=== PATIENT | female | born 1985 | race African-American/Black ===

== ENCOUNTER 2017-03-20 13:00 | Inpatient (IN) | payer OTHER ==
[2017-03-20 13:57] VITALS: BMI 26.7
--- NOTE | 2017-03-20 15:40 | HP ---
CIWA Score - CIWA Score Nausea/Vomitin Muscle Tremors: 4-Moderate,w/Arms Extend Anxiety: 4-Mod. Anxious/Guarded Agitation: 4-Moderately Restless Paroxysmal Sweats: 3 Orientation: 0-Oriented Tacttile Disturbances: 1-Very Mild Itch/Numbness Auditory Disturbances: 0-None Visual Disturbances: 0-None Headache: 1-Very Mild CIWA-Ar Total Score: 20 Admission ROS S - HPI Chief Complaint: alcohol withdrawal sx Allergies/Adverse Reactions: Allergies Allergy/AdvReac Type Severity Reaction Status Date / Time sulfamethoxazole Allergy Severe Hives Verified 03/20/17 14:20 [From Bactrim] trimethoprim [From Bactrim] Allergy Severe Hives Verified 03/20/17 14:20 History of Present Illness: 31 yo f w h /o chronic alcoholism drinks 1.5 cases beer daily PMHx alcohol withdrawal seizures in past, bipolar do, h/o suicde attempts in past, s/p gastric bypass surgery 2005. h/o DTs, no intubation. Exam Limitations: No Limitations - Ebola screening Have you traveled outside of the country in the last 21 days: No Have you had contact with anyone from an Ebola affected area: No Have you been sick,other than usual withdrawal symptoms: No Do you have a fever: No - Review of Systems Constitutional: Diaphoresis, Malaise, Weakness, Weight Stable EENT: reports: No Symptoms Reported Respiratory: reports: No Symptoms reported Cardiac: reports: No Symptoms Reported GI: reports: Constipated, Diarrhea, Nausea, Poor Appetite, Poor Fluid Intake, Indigestion, Abdominal cramping : reports: No Symptoms Reported Musculoskeletal: reports: No Symptoms Reported Integumentary: reports: Flushing, Sweating Neuro: reports: Headache, Numbness, Paresthesia, Seizure (2008), Tingling, Tremors, Weakness Endocrine: reports: No Symptoms Reported Hematology: reports: Anemia (s/p gastric bypass surgery) Psychiatric: reports: Judgement Intact, Mood/Affect Appropiate, Orientated x3, Anxious, Depressed Other Systems: Reviewed and Negative Patient History - Patient Medical History Hx Anemia: Yes (s/p gastric by pass surgery) Hx Asthma: No Hx Chronic Obstructive Pulmonary Disease (COPD): No Hx Cardiac Disorders: No Hx Hypertension: Yes Hx Hypercholesterolemia: No Hx Pacemaker: No HX Cerebrovascular Accident: No Hx Seizures: Yes (alcohol related once in 2007) Hx Diabetes: No Hx Gastrointestinal Disorders: No Hx Liver Disease: No Hx Genitourinary Disorders: No Hx Sexually Transmitted Disorders: No Hx Renal Disease (ESRD): No Hx Thyroid Disease: No Hx Human Immunodeficiency Virus (HIV): No Hx Hepatitis C: No Hx Depression: Yes Hx Suicide Attempt: Yes (drank bleach at age 25) Hx Bipolar Disorder: Yes (TYPE II AND ANXIETY DISODER) Hx Schizophrenia: No - Patient Surgical History Past Surgical History: Yes Hx Neurologic Surgery: No Hx Cataract Extraction: No Hx Cardiac Surgery: No Hx Lung Surgery: No Hx Breast Surgery: No Hx Breast Biopsy: No Hx Abdominal Surgery: Yes (GASTRIC BYPASS IN 2005) Hx Appendectomy: No Hx Cholecystectomy: No Hx Genitourinary Surgery: No Hx Section: No Hx Orthopedic Surgery: No Hx Hysterectomy: No Anesthesia Reaction: No - PPD History Previous Implant?: Yes Documented Results: Negative w/proof Implanted On Prior [facility] Admission?: Yes Date: 03/22/15 Results: 0 mm PPD to be Administered?: Yes - Reproductive History Patient is a Female of Child Bearing Age (11 -55 yrs old): No Last Menstrual Period: 01/30/15 Patient : No - Smoking Cessation Smoking history: Current every day smoker Have you smoked in the past 12 months: Yes Aproximately how many cigarettes per day: 10 Hx Chewing Tobacco Use: No Initiated information on smoking cessation: Yes 'Breaking Loose' booklet given: 03/20/17 - Substance & Tx. History Hx Alcohol Use: Yes Hx Substance Use: No Substance Use Type: Alcohol Hx Substance Use Treatment: Yes ( [facility] 2 years ago) - Substances Abused Alcohol-beer Route: Oral Frequency: Daily Amount used: 1 case (12 oz.) Age of first use: 23 Date of Last Use: 03/20/17 Family Disease History - Family Disease History Family Disease History: Diabetes: Mother, Other: Brother (ETOH DEPENDENT), Sister (ETOH DEPENDENT) Admission Physical Exam BHS - Vital Signs Vital Signs: Vital Signs - 24 hr 03/20/17 13:44 Temperature 97.3 F L Pulse Rate 113 H Respiratory 20 Rate Blood Pressure 117/75 - Physical General Appearance: Yes: Nourished, Appropriately Dressed, Disheveled, Mild Distress, Irritable, Sweating, Anxious HEENTM: Yes: Within Normal Limits, EOMI, Hearing grossly Normal, Normal ENT Inspection, Normocephalic, Normal Voice, TAJ, Pharynx Normal Respiratory: Yes: Within Normal Limits, Chest Non-Tender, Lungs Clear, Normal Breath Sounds, No Respiratory Distress, No Accessory Muscle Use Neck: Yes: Within Normal Limits, No masses,lesions,Nodules, Supple, Trachea in good position Breast: Yes: Breast Exam Deferred Cardiology: Yes: Within Normal Limits, Regular Rhythm, Regular Rate, S1, S2 Abdominal: Yes: Normal Bowel Sounds, Non Tender, Soft, Distended Genitourinary: Yes: Within Normal Limits Back: Yes: Within Normal Limits, CVA Tenderness (L) Musculoskeletal: Yes: full range of Motion, Gait Steady, Pelvis Stable Extremities: Yes: Normal Capillary Refill, Normal Inspection, Normal Range of Motion, Non-Tender, Tremors Neurological: Yes: regional property manager II-XII NML intact, Fully Oriented, Alert, Motor Strength 5/5, Normal Mood/Affect Integumentary: Yes: Normal Color, Warm, Diaphoresis, Moist Lymphatic: Yes: Within Normal Limits - Addiitonal Findings: alcohol withdrawal sx - Diagnostic (1) Alcohol dependence with uncomplicated withdrawal Current Visit: Yes Status: Acute (2) Anxiety disorder Current Visit: No Status: Chronic (3) Bipolar disorder Current Visit: Yes Status: Chronic (4) Nicotine dependence Current Visit: No Status: Chronic Qualifiers: Nicotine product type: cigarettes (5) Anemia Current Visit: Yes Status: Chronic Qualifiers: Anemia type: unspecified type Qualified Code(s): D64.9 - Anemia, unspecified (6) H/O gastric bypass Current Visit: Yes Status: Acute Cleared for Admission [facility] - Detox or Rehab Claeared for Rehab Admission: Yes [facility] Breath Alcohol Content Breath Alcohol Content: 0.238 Urine Pregancy Test - Result Urine Test Results: Negative- NO Line Present Urine Drug Screen - Results Drug Screen Negative: Yes
[2017-03-20] MEDS ORDERED: MENTHOL/PHENOL 1 EACH UD MM PRN (15:43)
[2017-03-20] MEDS ORDERED: chlordiazePOXIDE HCL 25 MG CAPSULE PO PRN (15:43)
[2017-03-20] MEDS ORDERED: ACETAMINOPHEN 325 MG TABLET (FP) PO PRN (15:43)
[2017-03-20] MEDS ORDERED: P-EPHED 60MG/TRIPROLIDI 2.5MG TABLET PO PRN (15:43)
[2017-03-20] MEDS ORDERED: guaiFENesin/D-METHORPHAN HB 10 ML UNIT-DOSE CUPS PO PRN (15:43)
[2017-03-20] MEDS ORDERED: MAG HYDROX/AL HYDROX/SIMETH 30 ML UNIT-DOSE CUP PO PRN (15:43)
[2017-03-20] MEDS ORDERED: LOPERAMIDE HCL 2 MG CAPSULE PO PRN (15:43)
[2017-03-20] MEDS ORDERED: MAGNESIUM HYDROX 2400MG/30ML ORAL SUSPENSION 30 ML CUP PO PRN (15:43)
[2017-03-20] MEDS ORDERED: MAGNESIUM CITRATE 300 ML BOTTLE PO PRN (15:43)
[2017-03-20] MEDS ORDERED: diphenhydrAMINE HCL 50 MG CAPSULE PO PRN (15:43)
[2017-03-20] MEDS ORDERED: NICOTINE POLACRILEX 2 MG GUM BUC PRN (15:45)
[2017-03-20] MEDS: chlordiazePOXIDE HCL 25 MG CAPSULE PO SCH ×2 (17:55→22:13)
[2017-03-20] MEDS: FERROUS SO4 325 MG TABLET (FP) PO SCH (18:12)
[2017-03-20] MEDS: NICOTINE 14 MG/24 HOURS TOPICAL PATCH TD SCH (18:18)
[2017-03-20] MEDS: THIAMINE HCL 100 MG TABLET (FP) PO SCH (22:12)
[2017-03-20] MEDS: QUEtiapine FUMARATE 50 MG TABLET PO SCH (22:13)
[2017-03-20] MEDS: DOCUSATE SODIUM 100 MG CAPSULE (FP) PO SCH (22:33)
[2017-03-21 00:38] LABS: URINE APPEARANCE CLEAR; URINE BILIRUBIN NEGATIVE (NEGATIVE); URINE BLOOD NEGATIVE (NEGATIVE); URINE COLOR LTYELLOW; URINE GLUCOSE (UA) NEGATIVE (NEGATIVE); URINE KETONE NEGATIVE (NEGATIVE); URINE LEUK ESTERASE NEGATIVE (NEGATIVE); URINE NITRITE NEGATIVE (NEGATIVE); URINE PROTEIN NEGATIVE (NEGATIVE); URINE UROBILINOGEN NEGATIVE mg/dL (0.2-1.0)
[2017-03-21] MEDS: chlordiazePOXIDE HCL 25 MG CAPSULE PO SCH ×4 (05:36→22:23)
[2017-03-21] MEDS: FERROUS SO4 325 MG TABLET (FP) PO SCH ×3 (07:25→17:38)
[2017-03-21 09:52] LABS: MCH 32.2 pg (25.7-33.7); MCHC 33.8 g/dl (32.0-36.0); MEAN CELL VOLUME 95.2 fl (80-96); PLATELET COUNT 271 K/MM3 (134-434); WHITE BLOOD COUNT 9.5 K/mm3 (4.0-10.0)
--- NOTE | 2017-03-21 10:06 | PN ---
S CIWA - CIWA Score Nausea/Vomitin Muscle Tremors: 4-Moderate,w/Arms Extend Anxiety: 4-Mod. Anxious/Guarded Agitation: 4-Moderately Restless Paroxysmal Sweats: 3 Orientation: 0-Oriented Tacttile Disturbances: 1-Very Mild Itch/Numbness Auditory Disturbances: 0-None Visual Disturbances: 0-None Headache: 1-Very Mild CIWA-Ar Total Score: 20 BHS Progress Note (SOAP) Subjective: nausea, sweats, interrupted sleep, anxiety, tremors Objective: 03/21/17 10:05 Vital Signs - 24 hr 03/20/17 03/20/17 03/20/17 13:44 18:56 21:58 Temperature 97.3 F L 98.4 F 98.4 F Pulse Rate 113 H 96 H 103 H Respiratory 20 18 18 Rate Blood Pressure 117/75 134/95 138/80 03/21/17 03/21/17 03/21/17 00:26 00:30 03:30 Temperature Pulse Rate 98 H 82 Respiratory 18 18 Rate Blood Pressure 03/21/17 03/21/17 03/21/17 06:00 06:30 09:32 Temperature 97.7 F 98.1 F Pulse Rate 81 81 97 H Respiratory 18 18 18 Rate Blood Pressure 133/86 146/86 Laboratory Tests 03/20/17 03/21/17 21:31 06:00 WBC 9.5 D RBC 3.90 Hgb 12.5 Hct 37.1 MCV 95.2 MCH 32.2 MCHC 33.8 RDW 14.0 D Plt Count 271 D MPV 9.0 D Urine Color Ltyellow Urine Appearance Clear Urine pH 5.0 Ur Specific [place] 1.010 Urine Protein Negative Urine Glucose (UA) Negative Urine Ketones Negative Urine Blood Negative Urine Nitrite Negative Urine Bilirubin Negative Urine Urobilinogen Negative labs pending Assessment: 03/21/17 10:05 withdrawal sx Plan: cont detox, fluids, encourage ambualtion
[2017-03-21] MEDS: PRENATAL VITAMINS W/ FOLIC ACID TABLET (FP) PO SCH (10:13)
[2017-03-21] MEDS: NICOTINE 14 MG/24 HOURS TOPICAL PATCH TD SCH (10:13)
[2017-03-21 10:19] LABS: ALBUMIN 3.9 g/dl (3.4-5.0); ALK PHOS 74 U/L (45-117); ANION GAP 7 (8-16); BILIRUBIN,TOTAL 0.7 mg/dL (0.2-1.0); CALCIUM 8.7 mg/dL (8.5-10.1); CO2 26 mmol/L (21-32); CREATININE 0.7 mg/dL (0.55-1.02); GLUCOSE,RANDOM 114 mg/dL (74-106); SGOT/AST 35 U/L (15-37); SGPT/ALT 47 U/L (12-78); TOT PROT 7.7 g/dl (6.4-8.2)
--- NOTE | 2017-03-21 11:03 | CONSULT ---
[facility] Psychiatric Consult - Data Date of interview: 03/21/17 Admission source: [facility] Identifying data: This is a 31 year old single AA female mother of 4,unemployed and on public assistance, residing in [place]. Substance Abuse History: PAtient reports started drinking at age of 23, she drinks daily 1 case(12oz). She smokes 10 cigarettes a day. Medical History: History of gastric bypass surgery. Psychiatric History: Patient reports was diagnosed with Bipolar II and Anxiety disorder,reports several psychiatric hospitalizations,with most recent in 2014 at [facility], states she is on LAmictal 200 mg po bid and Seroquel 50 mg po hs, due to her relapse to drinking she has not been taking medications for more than 2 weeks, but thinks she needs to restart her medications now. Physical/Sexual Abuse/Trauma History: Denies Mental Status Exam - Mental Status Exam Alert and Oriented to: Place, Person Cognitive Function: Grossly Intact Patient Appearance: Unkempt Mood: Anxious Affect: Appropriate, Mood Congruent Patient Behavior: Appropriate, Cooperative Speech Pattern: Clear, Appropriate Voice Loudness: Normal Thought Process: Intact, Goal Oriented Thought Disorder: Not Present Hallucinations: Denies Suicidal Ideation: Denies Homicidal Ideation: Denies Insight/Judgement: Fair Sleep: Fair Appetite: Fair Muscle strength/Tone: Normal Gait/Station: Normal Psychiatric Findings - Problem List ([place] 1, 2,3) (1) Alcohol dependence with uncomplicated withdrawal Current Visit: Yes Status: Acute (2) Anxiety disorder Current Visit: No Status: Chronic (3) Nicotine dependence Current Visit: No Status: Chronic Qualifiers: Nicotine product type: cigarettes (4) Bipolar II disorder Current Visit: Yes Status: Acute - Initial Treatment Plan Initial Treatment Plan: Patient was recommende to restart medication with low dosage since 2 weeks she was without meds, patient agreed with careplan. Will start with LAmictal 100 mg po bid and Seroquel 50 mg po hs,continue detox. protocol.
[2017-03-21 15:07] LABS: HIV 1 & 2 AB NEGATIVE; HIV 1 AGp24 NEGATIVE
[2017-03-21] MEDS: THIAMINE HCL 100 MG TABLET (FP) PO SCH (22:22)
[2017-03-21] MEDS: DOCUSATE SODIUM 100 MG CAPSULE (FP) PO SCH (22:22)
[2017-03-21] MEDS: QUEtiapine FUMARATE 50 MG TABLET PO SCH (22:22)
[2017-03-21] MEDS: lamoTRIgine 100 MG TABLET (FP) PO SCH (22:23)
[2017-03-22] MEDS: chlordiazePOXIDE HCL 25 MG CAPSULE PO SCH ×2 (05:42→10:29)
[2017-03-22] MEDS: IBUPROFEN 400 MG TABLET (FP) PO PRN (05:44)
[2017-03-22] MEDS: FERROUS SO4 325 MG TABLET (FP) PO SCH ×3 (07:52→17:26)
[2017-03-22] MEDS: PRENATAL VITAMINS W/ FOLIC ACID TABLET (FP) PO SCH (10:29)
[2017-03-22] MEDS: NICOTINE 14 MG/24 HOURS TOPICAL PATCH TD SCH (10:30)
[2017-03-22] MEDS: lamoTRIgine 100 MG TABLET (FP) PO SCH ×2 (10:30→22:08)
--- NOTE | 2017-03-22 11:12 | PN ---
S CIWA - CIWA Score Nausea/Vomitin Muscle Tremors: 3 Anxiety: 3 Agitation: 2 Paroxysmal Sweats: 3 Orientation: 0-Oriented Tacttile Disturbances: 1-Very Mild Itch/Numbness Auditory Disturbances: 1-Very Mild Visual Disturbances: 1-Very Mild Sensitivity Headache: 2-Mild CIWA-Ar Total Score: 19 S Progress Note (SOAP) Subjective: Sweats, tremors, headache and sleep interruption Objective: 03/22/17 11:11 Vital Signs - 8 hr 03/22/17 03/22/17 03/22/17 03:30 06:30 10:49 Temperature 97.3 F L 97.7 F Pulse Rate 74 76 Respiratory 18 18 16 Rate Blood Pressure 131/86 129/91 Laboratory Last Values WBC 9.5 K/mm3 (4.0-10.0) D 03/21/17 06:00 RBC 3.90 M/mm3 (3.60-5.2) 03/21/17 06:00 Hgb 12.5 GM/dL (10.7-15.3) 03/21/17 06:00 Hct 37.1 % (32.4-45.2) 03/21/17 06:00 MCV 95.2 fl (80-96) 03/21/17 06:00 MCH 32.2 pg (25.7-33.7) 03/21/17 06:00 MCHC 33.8 g/dl (32.0-36.0) 03/21/17 06:00 RDW 14.0 % (11.6-15.6) D 03/21/17 06:00 Plt Count 271 K/MM3 (134-434) D 03/21/17 06:00 MPV 9.0 fl (7.5-11.1) D 03/21/17 06:00 Sodium 137 mmol/L (136-145) 03/21/17 06:00 Potassium 4.3 mmol/L (3.5-5.1) 03/21/17 06:00 Chloride 104 mmol/L (98-107) 03/21/17 06:00 Carbon Dioxide 26 mmol/L (21-32) 03/21/17 06:00 Anion Gap 7 (8-16) L 03/21/17 06:00 BUN 8 mg/dL (7-18) D 03/21/17 06:00 Creatinine 0.7 mg/dL (0.55-1.02) 03/21/17 06:00 Creat Clearance w eGFR > 60 (>60) 03/21/17 06:00 Random Glucose 114 mg/dL (74-106) H D 03/21/17 06:00 Calcium 8.7 mg/dL (8.5-10.1) 03/21/17 06:00 Total Bilirubin 0.7 mg/dL (0.2-1.0) D 03/21/17 06:00 AST 35 U/L (15-37) D 03/21/17 06:00 ALT 47 U/L (12-78) D 03/21/17 06:00 Alkaline Phosphatase 74 U/L (45-117) D 03/21/17 06:00 Total Protein 7.7 g/dl (6.4-8.2) D 03/21/17 06:00 Albumin 3.9 g/dl (3.4-5.0) D 03/21/17 06:00 Urine Color Ltyellow 03/20/17 21:31 Urine Appearance Clear 03/20/17 21:31 Urine pH 5.0 (5.0-8.0) 03/20/17 21:31 Ur Specific [place] 1.010 (1.005-1.025) 03/20/17 21:31 Urine Protein Negative (NEGATIVE) 03/20/17 21:31 Urine Glucose (UA) Negative (NEGATIVE) 03/20/17 21:31 Urine Ketones Negative (NEGATIVE) 03/20/17 21:31 Urine Blood Negative (NEGATIVE) 03/20/17 21:31 Urine Nitrite Negative (NEGATIVE) 03/20/17 21:31 Urine Bilirubin Negative (NEGATIVE) 03/20/17 21:31 Urine Urobilinogen Negative mg/dL (0.2-1.0) 03/20/17 21:31 RPR Titer Nonreactive (NONREACTIVE) 03/21/17 06:00 HIV 1&2 Antibody Screen Negative 03/21/17 08:30 HIV P24 Antigen Negative 03/21/17 08:30 Labs noted Assessment: 03/22/17 11:11 withdrawal sx Plan: continue detox
[2017-03-22] MEDS: chlordiazePOXIDE 5 MG CAPSULE PO SCH ×2 (17:26→22:08)
[2017-03-22] MEDS: THIAMINE HCL 100 MG TABLET (FP) PO SCH (22:08)
[2017-03-22] MEDS: QUEtiapine FUMARATE 50 MG TABLET PO SCH (22:08)
[2017-03-22] MEDS: DOCUSATE SODIUM 100 MG CAPSULE (FP) PO SCH (22:08)
[2017-03-23] MEDS: IBUPROFEN 400 MG TABLET (FP) PO PRN ×2 (01:50→12:16)
[2017-03-23] MEDS: chlordiazePOXIDE 5 MG CAPSULE PO SCH ×2 (05:13→10:12)
[2017-03-23] MEDS: FERROUS SO4 325 MG TABLET (FP) PO SCH ×3 (07:30→17:21)
[2017-03-23] MEDS: lamoTRIgine 100 MG TABLET (FP) PO SCH ×2 (10:12→22:25)
[2017-03-23] MEDS: PRENATAL VITAMINS W/ FOLIC ACID TABLET (FP) PO SCH (10:12)
[2017-03-23] MEDS: NICOTINE 14 MG/24 HOURS TOPICAL PATCH TD SCH (10:12)
--- NOTE | 2017-03-23 14:49 | PN ---
BHS Progress Note (SOAP) Subjective: Sweating,interrupted sleep,restless Objective: 03/23/17 14:47 Vital Signs - 8 hr 03/23/17 03/23/17 10:15 13:34 Temperature 95.7 F L 97.5 F L Pulse Rate 78 75 Respiratory 18 20 Rate Blood Pressure 138/87 130/85 Laboratory Tests 03/20/17 03/21/17 03/21/17 21:31 06:00 06:00 WBC 9.5 D RBC 3.90 Hgb 12.5 Hct 37.1 MCV 95.2 MCH 32.2 MCHC 33.8 RDW 14.0 D Plt Count 271 D MPV 9.0 D Sodium 137 Potassium 4.3 Chloride 104 Carbon Dioxide 26 Anion Gap 7 L BUN 8 D Creatinine 0.7 Creat Clearance w eGFR > 60 Random Glucose 114 H D Calcium 8.7 Total Bilirubin 0.7 D AST 35 D ALT 47 D Alkaline Phosphatase 74 D Total Protein 7.7 D Albumin 3.9 D Urine Color Ltyellow Urine Appearance Clear Urine pH 5.0 Ur Specific [place] 1.010 Urine Protein Negative Urine Glucose (UA) Negative Urine Ketones Negative Urine Blood Negative Urine Nitrite Negative Urine Bilirubin Negative Urine Urobilinogen Negative RPR Titer HIV 1&2 Antibody Screen HIV P24 Antigen 03/21/17 03/21/17 06:00 08:30 WBC RBC Hgb Hct MCV MCH MCHC RDW Plt Count MPV Sodium Potassium Chloride Carbon Dioxide Anion Gap BUN Creatinine Creat Clearance w eGFR Random Glucose Calcium Total Bilirubin AST ALT Alkaline Phosphatase Total Protein Albumin Urine Color Urine Appearance Urine pH Ur Specific [place] Urine Protein Urine Glucose (UA) Urine Ketones Urine Blood Urine Nitrite Urine Bilirubin Urine Urobilinogen RPR Titer Nonreactive HIV 1&2 Antibody Screen Negative HIV P24 Antigen Negative labs noted Assessment: 03/23/17 14:47 Withdrawal sx. Plan: Continue detox
[2017-03-23] MEDS: chlordiazePOXIDE HCL 10 MG CAPSULE PO SCH ×2 (17:19→22:25)
[2017-03-23] MEDS: DOCUSATE SODIUM 100 MG CAPSULE (FP) PO SCH (22:25)
[2017-03-23] MEDS: QUEtiapine FUMARATE 50 MG TABLET PO SCH (22:25)
[2017-03-23] MEDS: THIAMINE HCL 100 MG TABLET (FP) PO SCH (22:25)
[2017-03-24] MEDS: chlordiazePOXIDE HCL 10 MG CAPSULE PO SCH (05:15)
[2017-03-24 06:11] VITALS: BP 109/70; PULSE 64; TEMP 98.6
[2017-03-24] MEDS: FERROUS SO4 325 MG TABLET (FP) PO SCH (07:10)
--- NOTE | 2017-03-24 08:28 | DS ---
[facility] Detox Discharge Summary Admission Date: 03/20/17 Discharge Date: 03/24/17 - History Present History: Alcohol Dependence Additional Comments: follow up with after care program as arrangement Pertinent Past History: anemia history of gastric by pass surgery bipolar disorder hypertension - Physical Exam Results Vital Signs: Vital Signs Temperature 98.6 F 03/24/17 06:10 Pulse Rate 64 03/24/17 06:10 Respiratory Rate 18 03/24/17 06:10 Blood Pressure 109/70 03/24/17 06:10 O2 Sat by Pulse Oximetry (%) Pertinent Admission Physical Exam Findings: withdrawal findings - Treatment Hospital Course: Detox Protocol Followed, Detoxed Safely, Responded well, Discharged Condition Good Patient has Accepted a Rehab Referral to: declined - Medication Discharge Medications: Ambulatory Orders Lamotrigine [Lamictal] 100 mg PO BID 03/20/17 Nifedipine ER [Procardia Xl -] 60 mg PO DAILY 03/20/17 Quetiapine Fumarate [Seroquel -] 50 mg PO HS 03/20/17 Lamotrigine [LaMICtal -] 100 mg PO BID #60 tablet 03/21/17 Quetiapine Fumarate [Seroquel -] 50 mg PO HS #30 tablet 03/21/17 - AMA Did Patient Leave Against Medical Advice: No
--- NOTE | 2017-03-24 17:05 | EKG ---
Test Reason : Blood Pressure : / mmHG Vent. Rate : 086 BPM Atrial Rate : 086 BPM P-R Int : 136 ms QRS Dur : 094 ms QT Int : 396 ms P-R-T Axes : 056 -04 058 degrees QTc Int : 473 ms NORMAL SINUS RHYTHM NORMAL ECG NO PREVIOUS ECGS AVAILABLE Confirmed by KATYA DYER MD ([id number]) on 03/24/2017 5:04:57 PM Referred By: Confirmed By:KATYA DYER MD
== END 2017-03-24 09:09 | disposition home or self-care (01) | DRG 775 ==
LOC: YASAS 13:00 → Y6N 16:54
PROVIDERS: ADMIT Internal Medicine; ATTEND Internal Medicine
PROC: HZ2ZZZZ Detoxification Services for Substance Abuse Treatment (ICD-10-PCS; principal; 2017-03-20)
DX: F10.230 Alcohol dependence with withdrawal, uncomplicated (principal); F17.210 Nicotine dependence, cigarettes, uncomplicated; F31.81 Bipolar II disorder; F41.9 Anxiety disorder, unspecified; G40.509 Epileptic seizures related to external causes, not intractable, without status epilepticus; Z91.5 Personal history of self-harm; Z98.84 Bariatric surgery status
CPT/HCPCS: 36415; 80053; 81003; 85027; 86593; 87389; 93005; 93010

== ENCOUNTER 2021-07-29 13:18 | Inpatient (IN) | payer OTHER ==
[2021-07-29 16:04] VITALS: BMI 29.7
[2021-07-29] MEDS ORDERED: MELATONIN 5 MG TABLETS PO PRN (16:11)
[2021-07-29] MEDS ORDERED: MAG HYDROX/AL HYDROX/SIMETH 30 ML UNIT-DOSE CUP PO PRN (16:11)
[2021-07-29] MEDS ORDERED: ACETAMINOPHEN 325 MG TABLET (FP) PO PRN ×2 (16:11)
[2021-07-29] MEDS ORDERED: MAGNESIUM HYDROX 2400MG/30ML ORAL SUSPENSION 30 ML CUP PO PRN (16:11)
[2021-07-29] MEDS ORDERED: MENTHOL/PHENOL 1 EACH UD MM PRN (16:11)
[2021-07-29] MEDS ORDERED: IBUPROFEN 400 MG TABLET (FP) PO PRN (16:11)
[2021-07-29] MEDS ORDERED: ONDANSETRON *ODT* 4 MG TABLET SL PRN (16:11)
[2021-07-29] MEDS ORDERED: MAGNESIUM CITRATE 300 ML BOTTLE PO PRN (16:11)
[2021-07-29] MEDS ORDERED: BISMUTH SUBSALICYLATE 524 MG/30 ML PO PRN (16:11)
[2021-07-29] MEDS: diazePAM 5 MG TABLET PO SCH ×2 (17:51→22:54)
[2021-07-29] MEDS: THIAMINE HCL 100 MG TABLET (FP) PO SCH (22:54)
[2021-07-30] MEDS: diazePAM 5 MG TABLET PO SCH ×4 (06:36→22:13)
[2021-07-30] MEDS: hydrOXYzine PAMOATE 25 MG CAPSULE (FP) PO PRN ×2 (06:37→14:35)
[2021-07-30] MEDS: PRENATAL VITAMINS W/ FOLIC ACID TABLET (FP) PO SCH (10:39)
[2021-07-30 10:47] LABS: HEMOGLOBIN 11.6 GM/dL (10.7-15.3); MCH 31.4 pg (25.7-33.7); MCHC 33.2 g/dl (32.0-36.0); MEAN CELL VOLUME 94.8 fl (80-96); MEAN PLT VOLUME 8.9 fl (7.5-11.1); PLATELET COUNT 193 10^3/uL (134-434); RBC 3.69 M/mm3 (3.60-5.2); RDW 16.7 % (11.6-15.6); WHITE BLOOD COUNT 4.7 K/mm3 (4.0-10.0)
[2021-07-30 10:54] LABS: BLOOD UREA NITROGEN 8.3 mg/dL (7-18); CALCIUM 8.4 mg/dL (8.5-10.1)
[2021-07-30 10:55] LABS: ALBUMIN 3.4 g/dl (3.4-5.0)
[2021-07-30 10:58] LABS: CREATININE 0.7 mg/dL (0.55-1.3)
[2021-07-30 11:00] LABS: BILIRUBIN,TOTAL 0.7 mg/dL (0.2-1)
[2021-07-30] MEDS: NIFEdipine E.R 60 MG TABLET PO SCH (11:24)
[2021-07-30] MEDS: METHOCARBAMOL 500 MG TABLET PO PRN ×2 (14:35→22:13)
[2021-07-30] MEDS: diazePAM 5 MG TABLET PO PRN (14:35)
[2021-07-30] MEDS ORDERED: QUEtiapine FUMARATE 100 MG TABLET (FP) PO SCH (22:00)
[2021-07-30] MEDS: THIAMINE HCL 100 MG TABLET (FP) PO SCH (22:13)
[2021-07-31] MEDS: diazePAM 5 MG TABLET PO SCH ×2 (06:13→14:48)
[2021-07-31] MEDS: METHOCARBAMOL 500 MG TABLET PO PRN (10:50)
[2021-07-31] MEDS: hydrOXYzine PAMOATE 25 MG CAPSULE (FP) PO PRN (10:51)
[2021-07-31] MEDS: PRENATAL VITAMINS W/ FOLIC ACID TABLET (FP) PO SCH (10:51)
[2021-07-31] MEDS: NIFEdipine E.R 60 MG TABLET PO SCH (10:51)
[2021-07-31] MEDS: diazePAM 5 MG TABLET PO PRN (11:05)
[2021-07-31 17:44] VITALS: BP 142/100; PULSE 83; TEMP 98
[2021-08-01] MEDS ORDERED: diazePAM 5 MG TABLET PO SCH (06:00)
[2021-08-02] MEDS ORDERED: diazePAM 5 MG TABLET PO ONE (06:00)
== END 2021-07-31 18:08 | disposition left against medical advice (07) | DRG 770 ==
LOC: YASAS 13:18 → Y3N 15:59
PROVIDERS: ADMIT Allergy & Immunology; ATTEND Allergy & Immunology
PROC: HZ2ZZZZ Detoxification Services for Substance Abuse Treatment (ICD-10-PCS; principal; 2021-07-29)
DX: F10.230 Alcohol dependence with withdrawal, uncomplicated (principal); F10.220 Alcohol dependence with intoxication, uncomplicated; F17.210 Nicotine dependence, cigarettes, uncomplicated; F31.9 Bipolar disorder, unspecified; I10 Essential (primary) hypertension; Z20.822 Contact with and (suspected) exposure to COVID-19; Z86.16 Personal history of COVID-19; Z88.2 Allergy status to sulfonamides; Z91.19 Patient's noncompliance with other medical treatment and regimen
CPT/HCPCS: 36415; 80053; 85027; 86780; C9803; U0003; U0005

== ENCOUNTER 2021-12-17 14:20 | Inpatient (IN) | payer OTHER ==
[2021-12-17 15:27] VITALS: BMI 26.1
[2021-12-18] MEDS ORDERED: MAGNESIUM CITRATE 300 ML BOTTLE PO PRN (03:54)
[2021-12-18] MEDS ORDERED: NICOTINE POLACRILEX 2 MG GUM BUC PRN (03:54)
[2021-12-18] MEDS ORDERED: MAGNESIUM HYDROX 2400MG/30ML ORAL SUSPENSION 30 ML CUP PO PRN (03:54)
[2021-12-18] MEDS ORDERED: ACETAMINOPHEN 325 MG TABLET (FP) PO PRN ×2 (03:54)
[2021-12-18] MEDS ORDERED: BENZOCAINE/MENTHOL (CHLORASEPTIC ) LOZENGE MM PRN (03:54)
[2021-12-18] MEDS ORDERED: ONDANSETRON *ODT* 4 MG TABLET SL PRN (03:54)
[2021-12-18] MEDS ORDERED: IBUPROFEN 400 MG TABLET (FP) PO PRN (03:54)
[2021-12-18] MEDS ORDERED: IBUPROFEN 600 MG TABLET (FP) PO PRN (03:54)
[2021-12-18] MEDS ORDERED: MAG HYDROX/AL HYDROX/SIMETH 30 ML UNIT-DOSE CUP PO PRN (03:54)
[2021-12-18] MEDS ORDERED: BISMUTH SUBSALICYLATE 524 MG/30 ML PO PRN (03:54)
[2021-12-18] MEDS ORDERED: DICYCLOMINE HCL 10 MG CAPSULE PO PRN (03:54)
[2021-12-18] MEDS ORDERED: chlordiazePOXIDE HCL 25 MG CAPSULE PO PRN (03:57)
[2021-12-18] MEDS: chlordiazePOXIDE HCL 25 MG CAPSULE PO SCH ×4 (04:48→22:19)
[2021-12-18] MEDS: METHOCARBAMOL 500 MG TABLET PO PRN ×2 (07:25→18:06)
[2021-12-18] MEDS: PRENATAL VITAMINS W/ FOLIC ACID TABLET (FP) PO SCH (10:40)
[2021-12-18 15:25] LABS: HEMATOCRIT 34.8 % (32.4-45.2); HEMOGLOBIN 11.6 GM/dL (10.7-15.3); MCH 34.1 pg (25.7-33.7); MCHC 33.5 g/dl (32.0-36.0); MEAN PLT VOLUME 10.3 fl (7.5-11.1); RBC 3.41 M/mm3 (3.60-5.2); RDW 16.4 % (11.6-15.6); WHITE BLOOD COUNT 3.4 K/mm3 (4.0-10.0)
[2021-12-18 15:28] LABS: CALCIUM 8.2 mg/dL (8.5-10.1)
[2021-12-18 15:29] LABS: ALBUMIN 3.4 g/dl (3.4-5.0); BLOOD UREA NITROGEN 11.2 mg/dL (7-18)
[2021-12-18 15:32] LABS: CREATININE 0.6 mg/dL (0.55-1.3)
[2021-12-18 15:33] LABS: TOT PROT 7.3 g/dl (6.4-8.2)
[2021-12-18] MEDS: LOPERAMIDE HCL 2 MG CAPSULE PO PRN ×2 (15:53→22:22)
[2021-12-18 16:18] LABS: PLATELET COUNT 56 10^3/uL (134-434)
[2021-12-18] MEDS: THIAMINE HCL 100 MG TABLET (FP) PO SCH (22:18)
[2021-12-18] MEDS: MELATONIN 5 MG TABLETS PO SCH (22:18)
[2021-12-19] MEDS: chlordiazePOXIDE HCL 25 MG CAPSULE PO SCH ×2 (05:45→10:16)
[2021-12-19] MEDS: PRENATAL VITAMINS W/ FOLIC ACID TABLET (FP) PO SCH (10:16)
[2021-12-19] MEDS ORDERED: LORazepam 0.5 MG TABLET PO PRN (10:52)
[2021-12-19] MEDS: METHOCARBAMOL 500 MG TABLET PO PRN (18:12)
[2021-12-19] MEDS: LORazepam 0.5 MG TABLET PO SCH ×2 (18:12→22:21)
[2021-12-19] MEDS: MELATONIN 5 MG TABLETS PO SCH (22:21)
[2021-12-19] MEDS: THIAMINE HCL 100 MG TABLET (FP) PO SCH (22:21)
[2021-12-20] MEDS ORDERED: chlordiazePOXIDE HCL 10 MG CAPSULE PO PRN
[2021-12-20] MEDS ORDERED: chlordiazePOXIDE HCL 10 MG CAPSULE PO SCH (05:00)
[2021-12-20] MEDS: LORazepam 0.5 MG TABLET PO SCH ×3 (06:11→22:28)
[2021-12-20] MEDS: PRENATAL VITAMINS W/ FOLIC ACID TABLET (FP) PO SCH (10:24)
[2021-12-20] MEDS: METHOCARBAMOL 500 MG TABLET PO PRN (10:25)
[2021-12-20] MEDS ORDERED: COLLOIDAL OATMEAL 1 BAR EACH TP PRN (14:42)
[2021-12-20] MEDS: THIAMINE HCL 100 MG TABLET (FP) PO SCH (22:28)
[2021-12-20] MEDS: MELATONIN 5 MG TABLETS PO SCH (22:29)
[2021-12-21] MEDS: METHOCARBAMOL 500 MG TABLET PO PRN (04:58)
[2021-12-21] MEDS ORDERED: LORazepam 0.5 MG TABLET PO SCH (05:00)
[2021-12-21] MEDS ORDERED: chlordiazePOXIDE HCL 10 MG CAPSULE PO SCH (05:00)
[2021-12-21 08:55] VITALS: BP 107/77; PULSE 76; TEMP 96.9
[2021-12-22] MEDS ORDERED: chlordiazePOXIDE HCL 10 MG CAPSULE PO ONE (05:00)
[2021-12-22] MEDS ORDERED: LORazepam 0.5 MG TABLET PO ONE (05:00)
== END 2021-12-21 10:00 | disposition home or self-care (01) | DRG 775 ==
LOC: YASAS 14:20 → Y6N 12-18 04:02
PROVIDERS: ADMIT Allergy & Immunology; ATTEND Surgery
PROC: HZ2ZZZZ Detoxification Services for Substance Abuse Treatment (ICD-10-PCS; principal; 2021-12-18)
DX: F10.230 Alcohol dependence with withdrawal, uncomplicated (principal); F17.210 Nicotine dependence, cigarettes, uncomplicated; F10.280 Alcohol dependence with alcohol-induced anxiety disorder; F10.24 Alcohol dependence with alcohol-induced mood disorder; F31.81 Bipolar II disorder; F10.282 Alcohol dependence with alcohol-induced sleep disorder; F41.9 Anxiety disorder, unspecified; D64.9 Anemia, unspecified; I10 Essential (primary) hypertension; R29.6 Repeated falls; Z88.2 Allergy status to sulfonamides; Z98.84 Bariatric surgery status
CPT/HCPCS: 36415; 70450-TC; 80053; 81025; 85027; 86780; 86803; 93005; 93010; 99281-25; C9803-CS; U0003; U0005

== ENCOUNTER 2022-08-20 10:47 | Inpatient (IN) | payer OTHER ==
[2022-08-20 11:58] VITALS: BMI 30.1
[2022-08-20] MEDS ORDERED: NICOTINE POLACRILEX 2 MG GUM BUC PRN (12:14)
[2022-08-20] MEDS ORDERED: DICYCLOMINE HCL 10 MG CAPSULE PO PRN (12:14)
[2022-08-20] MEDS ORDERED: MAGNESIUM HYDROX 2400MG/30ML ORAL SUSPENSION 30 ML CUP PO PRN (12:14)
[2022-08-20] MEDS ORDERED: guaiFENesin 200 MG/10 ML 10 ML UNIT-DOSE CUPS PO PRN (12:14)
[2022-08-20] MEDS ORDERED: NICOTINE 7 MG/24 HOURS TOPICAL PATCH TD PRN (12:14)
[2022-08-20] MEDS ORDERED: ONDANSETRON *ODT* 4 MG TABLET SL PRN (12:14)
[2022-08-20] MEDS ORDERED: BENZOCAINE/MENTHOL (CHLORASEPTIC ) LOZENGE MM PRN (12:14)
[2022-08-20] MEDS ORDERED: POLYETHYLENE GLYCOL (HEALTHYLAX) 3350 17 GM PACKET PO PRN (12:14)
[2022-08-20] MEDS ORDERED: BISMUTH SUBSALICYLATE 262 MG/15 ML BTL PO PRN (12:14)
[2022-08-20] MEDS ORDERED: MAG HYDROX/AL HYDROX/SIMETH 30 ML UNIT-DOSE CUP PO PRN (12:14)
[2022-08-20] MEDS ORDERED: IBUPROFEN 400 MG TABLET (FP) PO PRN (12:14)
[2022-08-20] MEDS ORDERED: ACETAMINOPHEN 325 MG TABLET (FP) PO PRN (12:14)
[2022-08-20] MEDS ORDERED: P-EPHED 60MG/TRIPROLIDI 2.5MG TABLET PO PRN (12:14)
[2022-08-20] MEDS ORDERED: chlordiazePOXIDE HCL 25 MG CAPSULE PO PRN (12:17)
[2022-08-20] MEDS ORDERED: chlordiazePOXIDE HCL 25 MG CAPSULE PO ONE (12:17)
[2022-08-20] MEDS: lamoTRIgine 100 MG TABLET PO SCH ×2 (13:48→22:36)
[2022-08-20 15:31] LABS: HEMATOCRIT 33.5 % (32.4-45.2); HEMOGLOBIN 11.3 GM/dL (10.7-15.3); MCH 31.2 pg (25.7-33.7); MCHC 33.6 g/dl (32.0-36.0); MEAN CELL VOLUME 92.8 fl (80-96); MEAN PLT VOLUME 8.6 fl (7.5-11.1); PLATELET COUNT 190 10^3/uL (134-434); RBC 3.61 M/mm3 (3.60-5.2); WHITE BLOOD COUNT 4.8 K/mm3 (4.0-10.0)
[2022-08-20 15:40] LABS: CALCIUM 8.8 mg/dL (8.5-10.1)
[2022-08-20 15:41] LABS: ALBUMIN 3.7 g/dl (3.4-5.0); BLOOD UREA NITROGEN 11.9 mg/dL (7-18)
[2022-08-20 15:44] LABS: CREATININE 0.7 mg/dL (0.55-1.3)
[2022-08-20 15:46] LABS: BILIRUBIN,TOTAL 0.9 mg/dL (0.2-1); TOT PROT 7.4 g/dl (6.4-8.2)
[2022-08-20] MEDS: chlordiazePOXIDE HCL 25 MG CAPSULE PO SCH ×2 (17:36→22:36)
[2022-08-20] MEDS: ACETAMINOPHEN 325 MG TABLET (FP) PO PRN (17:38)
[2022-08-20] MEDS: THIAMINE HCL 100 MG TABLET (FP) PO SCH (22:36)
[2022-08-20] MEDS: METHOCARBAMOL 500 MG TABLET PO PRN (22:38)
[2022-08-20] MEDS: LOPERAMIDE HCL 2 MG CAPSULE PO PRN (22:38)
[2022-08-21] MEDS: chlordiazePOXIDE HCL 25 MG CAPSULE PO SCH ×4 (05:36→22:27)
[2022-08-21] MEDS: PRENATAL VITAMINS W/ FOLIC ACID TABLET (FP) PO SCH (10:16)
[2022-08-21] MEDS: lamoTRIgine 100 MG TABLET PO SCH ×2 (10:16→22:27)
[2022-08-21] MEDS: METHOCARBAMOL 500 MG TABLET PO PRN (10:44)
[2022-08-21] MEDS: busPIRone HCL 10 MG TABLET (FP) PO SCH ×2 (14:51→22:27)
[2022-08-21] MEDS ORDERED: COLLOIDAL OATMEAL 1 BAR EACH TP PRN (14:56)
[2022-08-21] MEDS ORDERED: HYDROCORTISONE 1% TOPICAL CREAM 30 GM TUBE TP PRN (14:59)
[2022-08-21] MEDS: IBUPROFEN 600 MG TABLET (FP) PO PRN (17:26)
[2022-08-21] MEDS: LOPERAMIDE HCL 2 MG CAPSULE PO PRN (18:15)
[2022-08-21] MEDS ORDERED: QUEtiapine FUMARATE 50 MG TABLET PO SCH (22:00)
[2022-08-21] MEDS: MELATONIN 5 MG TABLETS PO PRN (22:27)
[2022-08-21] MEDS: THIAMINE HCL 100 MG TABLET (FP) PO SCH (22:27)
[2022-08-21] MEDS: QUEtiapine FUMARATE 100 MG TABLET (FP) PO SCH (22:27)
[2022-08-21] MEDS: traZODone HCL 50 MG TABLET (FP) PO SCH (22:27)
[2022-08-22] MEDS: chlordiazePOXIDE HCL 25 MG CAPSULE PO SCH ×4 (04:38→22:17)
[2022-08-22] MEDS: lamoTRIgine 100 MG TABLET PO SCH ×2 (10:11→22:17)
[2022-08-22] MEDS: PRENATAL VITAMINS W/ FOLIC ACID TABLET (FP) PO SCH (10:11)
[2022-08-22] MEDS: busPIRone HCL 10 MG TABLET (FP) PO SCH ×2 (10:11→22:17)
[2022-08-22] MEDS: IBUPROFEN 600 MG TABLET (FP) PO PRN (17:51)
[2022-08-22] MEDS: MELATONIN 5 MG TABLETS PO PRN (22:16)
[2022-08-22] MEDS: traZODone HCL 50 MG TABLET (FP) PO SCH (22:17)
[2022-08-22] MEDS: THIAMINE HCL 100 MG TABLET (FP) PO SCH (22:17)
[2022-08-22] MEDS: QUEtiapine FUMARATE 100 MG TABLET (FP) PO SCH (22:17)
[2022-08-22] MEDS: METHOCARBAMOL 500 MG TABLET PO PRN (22:18)
[2022-08-23] MEDS ORDERED: chlordiazePOXIDE HCL 10 MG CAPSULE PO PRN
[2022-08-23] MEDS: chlordiazePOXIDE HCL 10 MG CAPSULE PO SCH ×4 (06:28→22:14)
[2022-08-23] MEDS: lamoTRIgine 100 MG TABLET PO SCH ×2 (10:23→22:13)
[2022-08-23] MEDS: PRENATAL VITAMINS W/ FOLIC ACID TABLET (FP) PO SCH (10:23)
[2022-08-23] MEDS: busPIRone HCL 10 MG TABLET (FP) PO SCH ×2 (10:23→22:13)
[2022-08-23] MEDS: METHOCARBAMOL 500 MG TABLET PO PRN ×2 (10:26→17:28)
[2022-08-23] MEDS: ACETAMINOPHEN 325 MG TABLET (FP) PO PRN (17:28)
[2022-08-23] MEDS: THIAMINE HCL 100 MG TABLET (FP) PO SCH (22:13)
[2022-08-23] MEDS: MELATONIN 5 MG TABLETS PO PRN (22:13)
[2022-08-23] MEDS: traZODone HCL 50 MG TABLET (FP) PO SCH (22:13)
[2022-08-23] MEDS: QUEtiapine FUMARATE 100 MG TABLET (FP) PO SCH (22:13)
[2022-08-24] MEDS: chlordiazePOXIDE HCL 10 MG CAPSULE PO SCH ×2 (05:57→17:16)
[2022-08-24] MEDS: busPIRone HCL 10 MG TABLET (FP) PO SCH ×2 (10:05→22:45)
[2022-08-24] MEDS: lamoTRIgine 100 MG TABLET PO SCH ×2 (10:05→22:45)
[2022-08-24] MEDS: PRENATAL VITAMINS W/ FOLIC ACID TABLET (FP) PO SCH (10:05)
[2022-08-24] MEDS: METHOCARBAMOL 500 MG TABLET PO PRN (14:04)
[2022-08-24] MEDS: IBUPROFEN 600 MG TABLET (FP) PO PRN (17:15)
[2022-08-24] MEDS: QUEtiapine FUMARATE 100 MG TABLET (FP) PO SCH (22:46)
[2022-08-24] MEDS: traZODone HCL 50 MG TABLET (FP) PO SCH (22:46)
[2022-08-24] MEDS: THIAMINE HCL 100 MG TABLET (FP) PO SCH (22:46)
[2022-08-24] MEDS: MELATONIN 5 MG TABLETS PO PRN (22:47)
[2022-08-25] MEDS ORDERED: chlordiazePOXIDE HCL 10 MG CAPSULE PO ONE (05:00)
[2022-08-25 09:14] VITALS: RESP 18
[2022-08-25] MEDS: PRENATAL VITAMINS W/ FOLIC ACID TABLET (FP) PO SCH (09:44)
[2022-08-25] MEDS: busPIRone HCL 10 MG TABLET (FP) PO SCH (09:44)
[2022-08-25] MEDS: lamoTRIgine 100 MG TABLET PO SCH (09:44)
[2022-08-25 13:06] VITALS: BP 121/77; PULSE 71; TEMP 98.1
== END 2022-08-25 13:18 | disposition other institution (70) | DRG 775 ==
LOC: YASAS 10:47 → Y3N 12:39
PROVIDERS: ADMIT Allergy & Immunology; ATTEND Surgery
PROC: HZ2ZZZZ Detoxification Services for Substance Abuse Treatment (ICD-10-PCS; principal; 2022-08-20)
DX: F10.230 Alcohol dependence with withdrawal, uncomplicated (principal); F17.210 Nicotine dependence, cigarettes, uncomplicated; F31.9 Bipolar disorder, unspecified; Z86.16 Personal history of COVID-19; Z86.2 Personal history of diseases of the blood and blood-forming organs and certain disorders involving the immune mechanism; Z86.69 Personal history of other diseases of the nervous system and sense organs; Z98.84 Bariatric surgery status; Z88.2 Allergy status to sulfonamides
CPT/HCPCS: 36415; 80053; 81025; 85027; 86780; 87811; C9803-CS; U0003; U0005

== ENCOUNTER 2022-08-25 13:29 | Inpatient (IN) | payer OTHER ==
[2022-08-25] MEDS ORDERED: IBUPROFEN 400 MG TABLET (FP) PO PRN (15:08)
[2022-08-25] MEDS ORDERED: POLYETHYLENE GLYCOL (HEALTHYLAX) 3350 17 GM PACKET PO PRN (15:08)
[2022-08-25] MEDS ORDERED: BENZOCAINE/MENTHOL (CHLORASEPTIC ) LOZENGE MM PRN (15:08)
[2022-08-25] MEDS ORDERED: MAG HYDROX/AL HYDROX/SIMETH 30 ML UNIT-DOSE CUP PO PRN (15:08)
[2022-08-25] MEDS ORDERED: LOPERAMIDE HCL 2 MG CAPSULE PO PRN (15:08)
[2022-08-25] MEDS ORDERED: P-EPHED 60MG/TRIPROLIDI 2.5MG TABLET PO PRN (15:08)
[2022-08-25] MEDS ORDERED: guaiFENesin 200 MG/10 ML 10 ML UNIT-DOSE CUPS PO PRN (15:08)
[2022-08-25] MEDS ORDERED: NICOTINE POLACRILEX 2 MG GUM BUC PRN (15:08)
[2022-08-25] MEDS ORDERED: NICOTINE 7 MG/24 HOURS TOPICAL PATCH TD SCH (15:15)
[2022-08-25] MEDS ORDERED: PATIENT'S OWN MEDICATION (NON-FORMULARY) (Fluoxetine Hcl [Prozac] 40 MG Capsule) PO SCH (15:15)
[2022-08-25] MEDS ORDERED: traZODone HCL 50 MG TABLET (FP) PO SCH (15:15)
[2022-08-25] MEDS ORDERED: PRENATAL VITAMINS W/ FOLIC ACID TABLET (FP) PO SCH (15:15)
[2022-08-25] MEDS: busPIRone HCL 10 MG TABLET (FP) PO SCH (21:25)
[2022-08-25] MEDS: traZODone HCL 50 MG TABLET (FP) PO SCH (21:25)
[2022-08-25] MEDS: THIAMINE HCL 100 MG TABLET (FP) PO SCH (21:25)
[2022-08-25] MEDS: QUEtiapine FUMARATE 100 MG TABLET (FP) PO SCH (21:25)
[2022-08-25] MEDS: MELATONIN 5 MG TABLETS PO SCH (21:26)
[2022-08-25] MEDS: lamoTRIgine 100 MG TABLET PO SCH (21:36)
[2022-08-25] MEDS ORDERED: QUEtiapine FUMARATE 50 MG TABLET PO SCH (22:00)
[2022-08-26] MEDS ORDERED: FLUoxetine HCL 20 MG CAPSULE PO SCH (10:00)
[2022-08-26] MEDS: PRENATAL VITAMINS W/ FOLIC ACID TABLET (FP) PO SCH (10:15)
[2022-08-26] MEDS: lamoTRIgine 100 MG TABLET PO SCH ×2 (10:15→21:34)
[2022-08-26] MEDS: busPIRone HCL 10 MG TABLET (FP) PO SCH ×2 (10:15→21:33)
[2022-08-26] MEDS: MAGNESIUM HYDROX 2400MG/30ML ORAL SUSPENSION 30 ML CUP PO PRN (10:18)
[2022-08-26] MEDS: NICOTINE 10 MG CARTRIDGE (INHALER) IH PRN (11:28)
[2022-08-26 14:34] LABS: HIV INTERPRETATION NEGATIVE (NEGATIVE)
[2022-08-26] MEDS ORDERED: PATIENT'S OWN MEDICATION (NON-FORMULARY) (Fluoxetine Hcl [Prozac] 40 MG) PO SCH (15:15)
[2022-08-26] MEDS: hydrOXYzine PAMOATE 25 MG CAPSULE (FP) PO PRN (17:54)
[2022-08-26] MEDS: THIAMINE HCL 100 MG TABLET (FP) PO SCH (21:34)
[2022-08-26] MEDS: QUEtiapine FUMARATE 100 MG TABLET (FP) PO SCH (21:34)
[2022-08-26] MEDS: MELATONIN 5 MG TABLETS PO SCH (21:34)
[2022-08-26] MEDS: traZODone HCL 50 MG TABLET (FP) PO SCH (21:34)
[2022-08-27] MEDS: busPIRone HCL 10 MG TABLET (FP) PO SCH ×2 (09:47→22:04)
[2022-08-27] MEDS: PRENATAL VITAMINS W/ FOLIC ACID TABLET (FP) PO SCH (09:48)
[2022-08-27] MEDS: lamoTRIgine 100 MG TABLET PO SCH ×2 (09:48→22:04)
[2022-08-27] MEDS: FLUoxetine HCL 20 MG CAPSULE PO SCH (09:48)
[2022-08-27] MEDS: hydrOXYzine PAMOATE 25 MG CAPSULE (FP) PO PRN (12:33)
[2022-08-27] MEDS: NICOTINE 10 MG CARTRIDGE (INHALER) IH PRN (12:33)
[2022-08-27 19:31] LABS: PH,URINE 7.5 (5.0-8.0); URINE APPEARANCE CLEAR; URINE BILIRUBIN NEGATIVE (NEGATIVE); URINE COLOR YELLOW; URINE GLUCOSE (UA) NEGATIVE (NEGATIVE); URINE KETONE NEGATIVE (NEGATIVE); URINE LEUK ESTERASE NEGATIVE (NEGATIVE); URINE NITRITE NEGATIVE (NEGATIVE); URINE PROTEIN NEGATIVE (NEGATIVE); URINE UROBILINOGEN 0.2 mg/dL (0.2-1.0)
[2022-08-27] MEDS: QUEtiapine FUMARATE 100 MG TABLET (FP) PO SCH (22:04)
[2022-08-27] MEDS: traZODone HCL 50 MG TABLET (FP) PO SCH (22:04)
[2022-08-27] MEDS: THIAMINE HCL 100 MG TABLET (FP) PO SCH (22:04)
[2022-08-27] MEDS: MELATONIN 5 MG TABLETS PO SCH (22:04)
[2022-08-28] MEDS: PRENATAL VITAMINS W/ FOLIC ACID TABLET (FP) PO SCH (09:33)
[2022-08-28] MEDS: lamoTRIgine 100 MG TABLET PO SCH ×2 (09:33→21:53)
[2022-08-28] MEDS: busPIRone HCL 10 MG TABLET (FP) PO SCH ×2 (09:33→21:04)
[2022-08-28] MEDS: FLUoxetine HCL 20 MG CAPSULE PO SCH (09:33)
[2022-08-28] MEDS ORDERED: NALTREXONE HCL 50 MG TABLET PO ONE (10:02)
[2022-08-28] MEDS: hydrOXYzine PAMOATE 25 MG CAPSULE (FP) PO PRN ×2 (12:33→17:52)
[2022-08-28] MEDS: traZODone HCL 50 MG TABLET (FP) PO SCH (21:04)
[2022-08-28] MEDS: THIAMINE HCL 100 MG TABLET (FP) PO SCH (21:04)
[2022-08-28] MEDS: QUEtiapine FUMARATE 100 MG TABLET (FP) PO SCH (21:04)
[2022-08-28] MEDS: MELATONIN 5 MG TABLETS PO SCH (21:04)
[2022-08-28] MEDS: NICOTINE 10 MG CARTRIDGE (INHALER) IH PRN (22:07)
[2022-08-29] MEDS: FLUoxetine HCL 20 MG CAPSULE PO SCH (10:24)
[2022-08-29] MEDS: lamoTRIgine 100 MG TABLET PO SCH ×2 (10:24→22:04)
[2022-08-29] MEDS: busPIRone HCL 10 MG TABLET (FP) PO SCH ×2 (10:24→22:04)
[2022-08-29] MEDS: NALTREXONE HCL 50 MG TABLET PO SCH (10:25)
[2022-08-29] MEDS: PRENATAL VITAMINS W/ FOLIC ACID TABLET (FP) PO SCH (10:25)
[2022-08-29] MEDS: hydrOXYzine PAMOATE 25 MG CAPSULE (FP) PO PRN (13:07)
[2022-08-29] MEDS: QUEtiapine FUMARATE 100 MG TABLET (FP) PO SCH (22:04)
[2022-08-29] MEDS: THIAMINE HCL 100 MG TABLET (FP) PO SCH (22:04)
[2022-08-29] MEDS: MELATONIN 5 MG TABLETS PO SCH (22:04)
[2022-08-29] MEDS: traZODone HCL 50 MG TABLET (FP) PO SCH (22:04)
[2022-08-29] MEDS: NICOTINE 10 MG CARTRIDGE (INHALER) IH PRN (22:05)
[2022-08-30] MEDS: hydrOXYzine PAMOATE 25 MG CAPSULE (FP) PO PRN ×2 (07:34→17:08)
[2022-08-30] MEDS: lamoTRIgine 100 MG TABLET PO SCH ×2 (10:15→21:45)
[2022-08-30] MEDS: PRENATAL VITAMINS W/ FOLIC ACID TABLET (FP) PO SCH (10:15)
[2022-08-30] MEDS: busPIRone HCL 10 MG TABLET (FP) PO SCH ×2 (10:15→21:45)
[2022-08-30] MEDS: NALTREXONE HCL 50 MG TABLET PO SCH (10:15)
[2022-08-30] MEDS: FLUoxetine HCL 20 MG CAPSULE PO SCH (10:15)
[2022-08-30] MEDS: traZODone HCL 50 MG TABLET (FP) PO SCH (21:45)
[2022-08-30] MEDS: MELATONIN 5 MG TABLETS PO SCH (21:45)
[2022-08-30] MEDS: QUEtiapine FUMARATE 100 MG TABLET (FP) PO SCH (21:45)
[2022-08-30] MEDS: THIAMINE HCL 100 MG TABLET (FP) PO SCH (21:45)
[2022-08-31] MEDS: NALTREXONE HCL 50 MG TABLET PO SCH (10:37)
[2022-08-31] MEDS: FLUoxetine HCL 20 MG CAPSULE PO SCH (10:37)
[2022-08-31] MEDS: lamoTRIgine 100 MG TABLET PO SCH ×2 (10:37→22:20)
[2022-08-31] MEDS: PRENATAL VITAMINS W/ FOLIC ACID TABLET (FP) PO SCH (10:37)
[2022-08-31] MEDS: busPIRone HCL 10 MG TABLET (FP) PO SCH ×2 (10:37→22:19)
[2022-08-31] MEDS: hydrOXYzine PAMOATE 25 MG CAPSULE (FP) PO PRN (14:32)
[2022-08-31] MEDS: QUEtiapine FUMARATE 100 MG TABLET (FP) PO SCH (22:19)
[2022-08-31] MEDS: traZODone HCL 50 MG TABLET (FP) PO SCH (22:19)
[2022-08-31] MEDS: THIAMINE HCL 100 MG TABLET (FP) PO SCH (22:20)
[2022-08-31] MEDS: MELATONIN 5 MG TABLETS PO SCH (22:20)
[2022-09-01] MEDS: PRENATAL VITAMINS W/ FOLIC ACID TABLET (FP) PO SCH (09:03)
[2022-09-01] MEDS: hydrOXYzine PAMOATE 25 MG CAPSULE (FP) PO PRN (09:04)
[2022-09-01] MEDS: NALTREXONE HCL 50 MG TABLET PO SCH (09:04)
[2022-09-01] MEDS: lamoTRIgine 100 MG TABLET PO SCH ×2 (09:04→21:51)
[2022-09-01] MEDS: FLUoxetine HCL 20 MG CAPSULE PO SCH (09:04)
[2022-09-01] MEDS: busPIRone HCL 10 MG TABLET (FP) PO SCH ×2 (09:05→21:51)
[2022-09-01] MEDS: ACETAMINOPHEN 325 MG TABLET (FP) PO PRN (09:07)
[2022-09-01] MEDS: traZODone HCL 50 MG TABLET (FP) PO SCH (21:51)
[2022-09-01] MEDS: MELATONIN 5 MG TABLETS PO SCH (21:51)
[2022-09-01] MEDS: THIAMINE HCL 100 MG TABLET (FP) PO SCH (21:51)
[2022-09-01] MEDS: QUEtiapine FUMARATE 100 MG TABLET (FP) PO SCH (21:51)
[2022-09-02] MEDS: lamoTRIgine 100 MG TABLET PO SCH ×2 (10:40→22:01)
[2022-09-02] MEDS: NALTREXONE HCL 50 MG TABLET PO SCH (10:40)
[2022-09-02] MEDS: FLUoxetine HCL 20 MG CAPSULE PO SCH (10:40)
[2022-09-02] MEDS: PRENATAL VITAMINS W/ FOLIC ACID TABLET (FP) PO SCH (10:40)
[2022-09-02] MEDS: NICOTINE 10 MG CARTRIDGE (INHALER) IH PRN (10:43)
[2022-09-02] MEDS: hydrOXYzine PAMOATE 25 MG CAPSULE (FP) PO PRN (10:43)
[2022-09-02] MEDS: busPIRone HCL 10 MG TABLET (FP) PO SCH ×2 (10:57→22:01)
[2022-09-02] MEDS: QUEtiapine FUMARATE 100 MG TABLET (FP) PO SCH (22:01)
[2022-09-02] MEDS: THIAMINE HCL 100 MG TABLET (FP) PO SCH (22:01)
[2022-09-02] MEDS: MELATONIN 5 MG TABLETS PO SCH (22:01)
[2022-09-02] MEDS: traZODone HCL 50 MG TABLET (FP) PO SCH (22:01)
[2022-09-03] MEDS: ACETAMINOPHEN 325 MG TABLET (FP) PO PRN (06:56)
[2022-09-03] MEDS: hydrOXYzine PAMOATE 25 MG CAPSULE (FP) PO PRN (06:56)
[2022-09-03] MEDS: NALTREXONE HCL 50 MG TABLET PO SCH (10:27)
[2022-09-03] MEDS: lamoTRIgine 100 MG TABLET PO SCH ×2 (10:27→21:09)
[2022-09-03] MEDS: FLUoxetine HCL 20 MG CAPSULE PO SCH (10:27)
[2022-09-03] MEDS: PRENATAL VITAMINS W/ FOLIC ACID TABLET (FP) PO SCH (10:27)
[2022-09-03] MEDS: busPIRone HCL 10 MG TABLET (FP) PO SCH ×3 (10:27→21:09)
[2022-09-03] MEDS ORDERED: ARTIFICIAL TEARS (POLYVINYL ALCOHOL) OPTH DROPS OU PRN (10:38)
[2022-09-03] MEDS: NICOTINE 10 MG CARTRIDGE (INHALER) IH PRN (19:51)
[2022-09-03] MEDS: QUEtiapine FUMARATE 100 MG TABLET (FP) PO SCH (21:09)
[2022-09-03] MEDS: THIAMINE HCL 100 MG TABLET (FP) PO SCH (21:09)
[2022-09-03] MEDS: MELATONIN 5 MG TABLETS PO SCH (21:09)
[2022-09-03] MEDS: traZODone HCL 50 MG TABLET (FP) PO SCH (21:09)
[2022-09-03 22:44] VITALS: RESP 18
[2022-09-04] MEDS: busPIRone HCL 10 MG TABLET (FP) PO SCH ×3 (06:56→21:58)
[2022-09-04] MEDS: lamoTRIgine 100 MG TABLET PO SCH ×2 (10:58→21:59)
[2022-09-04] MEDS: NALTREXONE HCL 50 MG TABLET PO SCH (10:58)
[2022-09-04] MEDS: PRENATAL VITAMINS W/ FOLIC ACID TABLET (FP) PO SCH (10:58)
[2022-09-04] MEDS: FLUoxetine HCL 20 MG CAPSULE PO SCH (10:58)
[2022-09-04] MEDS: QUEtiapine FUMARATE 100 MG TABLET (FP) PO SCH (21:58)
[2022-09-04] MEDS: MELATONIN 5 MG TABLETS PO SCH (21:58)
[2022-09-04] MEDS: traZODone HCL 50 MG TABLET (FP) PO SCH (21:58)
[2022-09-04] MEDS: THIAMINE HCL 100 MG TABLET (FP) PO SCH (21:59)
[2022-09-05] MEDS: busPIRone HCL 10 MG TABLET (FP) PO SCH ×3 (06:55→21:13)
[2022-09-05] MEDS: NALTREXONE HCL 50 MG TABLET PO SCH (10:44)
[2022-09-05] MEDS: FLUoxetine HCL 20 MG CAPSULE PO SCH (10:44)
[2022-09-05] MEDS: lamoTRIgine 100 MG TABLET PO SCH ×2 (10:44→21:13)
[2022-09-05] MEDS: PRENATAL VITAMINS W/ FOLIC ACID TABLET (FP) PO SCH (10:44)
[2022-09-05] MEDS: NICOTINE 10 MG CARTRIDGE (INHALER) IH PRN (11:17)
[2022-09-05] MEDS: MAGNESIUM HYDROX 2400MG/30ML ORAL SUSPENSION 30 ML CUP PO PRN (14:33)
[2022-09-05] MEDS: traZODone HCL 50 MG TABLET (FP) PO SCH (21:13)
[2022-09-05] MEDS: QUEtiapine FUMARATE 100 MG TABLET (FP) PO SCH (21:13)
[2022-09-05] MEDS: THIAMINE HCL 100 MG TABLET (FP) PO SCH (21:13)
[2022-09-05] MEDS: MELATONIN 5 MG TABLETS PO SCH (21:13)
[2022-09-06] MEDS: busPIRone HCL 10 MG TABLET (FP) PO SCH ×3 (06:37→21:17)
[2022-09-06] MEDS: cloNIDine HCL 0.1 MG TABLET PO PRN (06:37)
[2022-09-06] MEDS: NALTREXONE HCL 50 MG TABLET PO SCH (10:28)
[2022-09-06] MEDS: PRENATAL VITAMINS W/ FOLIC ACID TABLET (FP) PO SCH (10:28)
[2022-09-06] MEDS: lamoTRIgine 100 MG TABLET PO SCH ×2 (10:28→21:17)
[2022-09-06] MEDS: FLUoxetine HCL 20 MG CAPSULE PO SCH (10:28)
[2022-09-06] MEDS: ACETAMINOPHEN 325 MG TABLET (FP) PO PRN (10:29)
[2022-09-06] MEDS: MAGNESIUM HYDROX 2400MG/30ML ORAL SUSPENSION 30 ML CUP PO PRN (17:45)
[2022-09-06] MEDS: MELATONIN 5 MG TABLETS PO SCH (21:17)
[2022-09-06] MEDS: traZODone HCL 50 MG TABLET (FP) PO SCH (21:17)
[2022-09-06] MEDS: THIAMINE HCL 100 MG TABLET (FP) PO SCH (21:17)
[2022-09-06] MEDS: QUEtiapine FUMARATE 100 MG TABLET (FP) PO SCH (21:17)
[2022-09-07] MEDS: cloNIDine HCL 0.1 MG TABLET PO PRN (06:38)
[2022-09-07] MEDS: busPIRone HCL 10 MG TABLET (FP) PO SCH ×3 (06:38→21:52)
[2022-09-07] MEDS: NALTREXONE HCL 50 MG TABLET PO SCH (10:04)
[2022-09-07] MEDS: lamoTRIgine 100 MG TABLET PO SCH ×2 (10:04→21:52)
[2022-09-07] MEDS: FLUoxetine HCL 20 MG CAPSULE PO SCH (10:04)
[2022-09-07] MEDS: PRENATAL VITAMINS W/ FOLIC ACID TABLET (FP) PO SCH (10:04)
[2022-09-07] MEDS: THIAMINE HCL 100 MG TABLET (FP) PO SCH (21:51)
[2022-09-07] MEDS: QUEtiapine FUMARATE 100 MG TABLET (FP) PO SCH (21:51)
[2022-09-07] MEDS: MELATONIN 5 MG TABLETS PO SCH (21:51)
[2022-09-07] MEDS: traZODone HCL 50 MG TABLET (FP) PO SCH (21:51)
[2022-09-08] MEDS: cloNIDine HCL 0.1 MG TABLET PO PRN (06:42)
[2022-09-08] MEDS: busPIRone HCL 10 MG TABLET (FP) PO SCH ×3 (06:42→21:58)
[2022-09-08] MEDS: PRENATAL VITAMINS W/ FOLIC ACID TABLET (FP) PO SCH (10:05)
[2022-09-08] MEDS: NALTREXONE HCL 50 MG TABLET PO SCH (10:05)
[2022-09-08] MEDS: lamoTRIgine 100 MG TABLET PO SCH ×2 (10:05→21:58)
[2022-09-08] MEDS: FLUoxetine HCL 20 MG CAPSULE PO SCH (10:05)
[2022-09-08] MEDS ORDERED: COLLOIDAL OATMEAL 1 BAR EACH TP PRN (14:47)
[2022-09-08] MEDS: MELATONIN 5 MG TABLETS PO SCH (21:58)
[2022-09-08] MEDS: QUEtiapine FUMARATE 100 MG TABLET (FP) PO SCH (21:58)
[2022-09-08] MEDS: traZODone HCL 50 MG TABLET (FP) PO SCH (21:58)
[2022-09-08] MEDS: THIAMINE HCL 100 MG TABLET (FP) PO SCH (21:58)
[2022-09-09] MEDS: busPIRone HCL 10 MG TABLET (FP) PO SCH ×3 (07:01→21:16)
[2022-09-09] MEDS: PRENATAL VITAMINS W/ FOLIC ACID TABLET (FP) PO SCH (10:07)
[2022-09-09] MEDS: NALTREXONE HCL 50 MG TABLET PO SCH (10:07)
[2022-09-09] MEDS: FLUoxetine HCL 20 MG CAPSULE PO SCH (10:07)
[2022-09-09] MEDS: lamoTRIgine 100 MG TABLET PO SCH ×2 (10:07→21:16)
[2022-09-09] MEDS: cloNIDine HCL 0.1 MG TABLET PO PRN (17:39)
[2022-09-09] MEDS: QUEtiapine FUMARATE 100 MG TABLET (FP) PO SCH (21:16)
[2022-09-09] MEDS: MELATONIN 5 MG TABLETS PO SCH (21:16)
[2022-09-09] MEDS: traZODone HCL 50 MG TABLET (FP) PO SCH (21:16)
[2022-09-09] MEDS: THIAMINE HCL 100 MG TABLET (FP) PO SCH (21:16)
[2022-09-10] MEDS: busPIRone HCL 10 MG TABLET (FP) PO SCH (07:15)
[2022-09-10 07:29] VITALS: BP 151/93; PULSE 60; TEMP 96.9
[2022-09-10] MEDS: lamoTRIgine 100 MG TABLET PO SCH (09:30)
[2022-09-10] MEDS: FLUoxetine HCL 20 MG CAPSULE PO SCH (09:30)
[2022-09-10] MEDS: PRENATAL VITAMINS W/ FOLIC ACID TABLET (FP) PO SCH (09:30)
[2022-09-10] MEDS: NALTREXONE HCL 50 MG TABLET PO SCH (09:31)
== END 2022-09-10 10:25 | disposition home or self-care (01) | DRG 772 ==
LOC: YASAS 13:29 → Y5N 13:30
PROVIDERS: ADMIT Allergy & Immunology; ATTEND Allergy & Immunology
PROC: HZ42ZZZ Group Counseling for Substance Abuse Treatment, Cognitive-Behavioral (ICD-10-PCS; principal; 2022-08-25)
DX: F10.20 Alcohol dependence, uncomplicated (principal); F17.210 Nicotine dependence, cigarettes, uncomplicated; F31.81 Bipolar II disorder; F10.280 Alcohol dependence with alcohol-induced anxiety disorder; F10.282 Alcohol dependence with alcohol-induced sleep disorder; F10.24 Alcohol dependence with alcohol-induced mood disorder; F41.9 Anxiety disorder, unspecified; G47.00 Insomnia, unspecified; I10 Essential (primary) hypertension; Z86.19 Personal history of other infectious and parasitic diseases; Z98.84 Bariatric surgery status; Z88.2 Allergy status to sulfonamides
CPT/HCPCS: 36415; 81003; 86803; 87389

== ENCOUNTER 2022-12-31 12:16 | Inpatient (IN) | payer OTHER ==
[2022-12-31 12:48] VITALS: BMI 28.8
[2022-12-31] MEDS ORDERED: LOPERAMIDE HCL 2 MG CAPSULE PO PRN (13:17)
[2022-12-31] MEDS ORDERED: BENZOCAINE/MENTHOL (CHLORASEPTIC ) LOZENGE MM PRN (13:17)
[2022-12-31] MEDS ORDERED: P-EPHED 60MG/TRIPROLIDI 2.5MG TABLET PO PRN (13:17)
[2022-12-31] MEDS ORDERED: guaiFENesin 600 MG TABLET.ER (FP) PO PRN (13:17)
[2022-12-31] MEDS ORDERED: ACETAMINOPHEN 325 MG TABLET (FP) PO PRN ×2 (13:17)
[2022-12-31] MEDS ORDERED: BENZONATATE 200 MG CAPSULE PO PRN (13:17)
[2022-12-31] MEDS ORDERED: BISMUTH SUBSALICYLATE 524 MG/30 ML PO PRN (13:17)
[2022-12-31] MEDS ORDERED: POLYETHYLENE GLYCOL (HEALTHYLAX) 3350 17 GM PACKET PO PRN (13:17)
[2022-12-31] MEDS ORDERED: ONDANSETRON *ODT* 4 MG TABLET SL PRN (13:17)
[2022-12-31] MEDS ORDERED: DICYCLOMINE HCL 10 MG CAPSULE PO PRN (13:17)
[2022-12-31] MEDS ORDERED: MAGNESIUM HYDROX 2400MG/30ML ORAL SUSPENSION 30 ML CUP PO PRN (13:17)
[2022-12-31] MEDS ORDERED: NICOTINE POLACRILEX 2 MG GUM BUC PRN (13:17)
[2022-12-31] MEDS ORDERED: NICOTINE 10 MG CARTRIDGE (INHALER) IH PRN (13:17)
[2022-12-31] MEDS ORDERED: chlordiazePOXIDE HCL 25 MG CAPSULE PO PRN (13:19)
[2022-12-31] MEDS ORDERED: chlordiazePOXIDE HCL 25 MG CAPSULE PO ONE (13:45)
[2022-12-31] MEDS ORDERED: TRIMETHOBENZAMIDE HCL 200MG/2ML INJ IM PRN (13:45)
[2022-12-31] MEDS ORDERED: chlordiazePOXIDE HCL 25 MG CAPSULE ONE (15:09)
[2022-12-31] MEDS: chlordiazePOXIDE HCL 25 MG CAPSULE PO SCH ×2 (17:32→22:14)
[2022-12-31] MEDS ORDERED: MELATONIN 5 MG TABLETS PO SCH (22:00)
[2022-12-31] MEDS: THIAMINE HCL 100 MG TABLET (FP) PO SCH (22:14)
[2023-01-01] MEDS: chlordiazePOXIDE HCL 25 MG CAPSULE PO SCH ×4 (05:39→22:15)
[2023-01-01] MEDS ORDERED: lamoTRIgine 100 MG TABLET PO SCH (10:00)
[2023-01-01] MEDS ORDERED: LAMOTRIGINE 100 MG, LAMOTRIGINE 50 MG PO SCH (10:00)
[2023-01-01] MEDS: levETIRAcetam 250 MG TABLET PO SCH ×2 (10:18→22:15)
[2023-01-01] MEDS: METHOCARBAMOL 500 MG TABLET PO PRN ×2 (10:18→17:31)
[2023-01-01] MEDS: PRENATAL VITAMINS W/ FOLIC ACID TABLET (FP) PO SCH (10:18)
[2023-01-01 11:17] LABS: HEMATOCRIT 39.1 % (32.4-45.2); MCH 31.4 pg (25.7-33.7); MCHC 33.1 g/dl (32.0-36.0); MEAN CELL VOLUME 94.9 fl (80-96); MEAN PLT VOLUME 10.1 fl (7.5-11.1); PLATELET COUNT 196 10^3/uL (134-434); RBC 4.12 M/mm3 (3.60-5.2); WHITE BLOOD COUNT 8.8 K/mm3 (4.0-10.0)
[2023-01-01 11:23] LABS: POTASSIUM 4.2 mmol/L (3.5-5.1)
[2023-01-01 11:31] LABS: ALBUMIN 3.9 g/dl (3.4-5.0); BLOOD UREA NITROGEN 10.8 mg/dL (7-18)
[2023-01-01 11:33] LABS: CREATININE 0.7 mg/dL (0.55-1.3)
[2023-01-01 11:36] LABS: BILIRUBIN,TOTAL 0.7 mg/dL (0.2-1); TOT PROT 7.7 g/dl (6.4-8.2)
[2023-01-01] MEDS: MAG HYDROX/AL HYDROX/SIMETH 30 ML UNIT-DOSE CUP PO PRN (16:01)
[2023-01-01] MEDS ORDERED: QUEtiapine FUMARATE 100 MG TABLET (FP) PO SCH (22:00)
[2023-01-01] MEDS: THIAMINE HCL 100 MG TABLET (FP) PO SCH (22:15)
[2023-01-02] MEDS: METHOCARBAMOL 500 MG TABLET PO PRN ×2 (03:30→10:03)
[2023-01-02] MEDS: chlordiazePOXIDE HCL 25 MG CAPSULE PO SCH ×2 (06:00→10:01)
[2023-01-02] MEDS: levETIRAcetam 250 MG TABLET PO SCH (10:01)
[2023-01-02] MEDS: PRENATAL VITAMINS W/ FOLIC ACID TABLET (FP) PO SCH (10:01)
[2023-01-02] MEDS: MAG HYDROX/AL HYDROX/SIMETH 30 ML UNIT-DOSE CUP PO PRN (12:26)
[2023-01-02 13:14] VITALS: BP 131/81; PULSE 86; RESP 19; TEMP 98.4
[2023-01-02] MEDS ORDERED: chlordiazePOXIDE HCL 10 MG CAPSULE PO SCH ×2 (14:00→17:00)
[2023-01-03] MEDS ORDERED: chlordiazePOXIDE HCL 10 MG CAPSULE PO PRN
[2023-01-03] MEDS ORDERED: chlordiazePOXIDE HCL 10 MG CAPSULE PO SCH ×2 (05:00)
[2023-01-04] MEDS ORDERED: chlordiazePOXIDE HCL 10 MG CAPSULE PO SCH (05:00)
[2023-01-04] MEDS ORDERED: chlordiazePOXIDE HCL 10 MG CAPSULE PO ONE (05:00)
[2023-01-05] MEDS ORDERED: chlordiazePOXIDE HCL 10 MG CAPSULE PO ONE (05:00)
== END 2023-01-02 14:21 | disposition left against medical advice (07) | DRG 770 ==
LOC: YASAS 12:16 → Y6N 13:45
PROVIDERS: ADMIT Allergy & Immunology; ATTEND Surgery
PROC: HZ2ZZZZ Detoxification Services for Substance Abuse Treatment (ICD-10-PCS; principal; 2022-12-31)
DX: F10.230 Alcohol dependence with withdrawal, uncomplicated (principal); F17.210 Nicotine dependence, cigarettes, uncomplicated; F10.282 Alcohol dependence with alcohol-induced sleep disorder; F10.280 Alcohol dependence with alcohol-induced anxiety disorder; F10.24 Alcohol dependence with alcohol-induced mood disorder; F31.9 Bipolar disorder, unspecified; F41.8 Other specified anxiety disorders; Z62.810 Personal history of physical and sexual abuse in childhood; Z91.410 Personal history of adult physical and sexual abuse; Z86.16 Personal history of COVID-19; Z86.69 Personal history of other diseases of the nervous system and sense organs; Z98.84 Bariatric surgery status; Z88.2 Allergy status to sulfonamides
CPT/HCPCS: 36415; 80053; 81025; 85027; 86780; 87635; 87811; 93005; 93010

== ENCOUNTER 2023-08-26 10:32 | Inpatient (IN) | payer OTHER ==
[2023-08-26 10:56] VITALS: BMI 30.1
[2023-08-26] MEDS ORDERED: BENZONATATE 200 MG CAPSULE PO PRN (11:41)
[2023-08-26] MEDS ORDERED: NALOXONE HCL (KLOXXADO) 8 MG SPRAY NS PRN (11:41)
[2023-08-26] MEDS ORDERED: guaiFENesin 600 MG TABLET.ER (FP) PO PRN (11:41)
[2023-08-26] MEDS ORDERED: BISACODYL 5 MG TABLET.DR (FP) PO PRN (11:41)
[2023-08-26] MEDS ORDERED: BENZOCAINE/MENTHOL (CHLORASEPTIC ) LOZENGE MM PRN (11:41)
[2023-08-26] MEDS ORDERED: MAG HYDROX/AL HYDROX/SIMETH 30 ML UNIT-DOSE CUP PO PRN (11:41)
[2023-08-26] MEDS ORDERED: IBUPROFEN 400 MG TABLET (FP) PO PRN (11:41)
[2023-08-26] MEDS ORDERED: MAGNESIUM HYDROX 2400MG/30ML ORAL SUSPENSION 30 ML CUP PO PRN (11:41)
[2023-08-26] MEDS ORDERED: POLYETHYLENE GLYCOL (HEALTHYLAX) 3350 17 GM PACKET PO PRN (11:41)
[2023-08-26] MEDS ORDERED: NICOTINE POLACRILEX 2 MG GUM BUC PRN (11:41)
[2023-08-26] MEDS ORDERED: NALOXONE HCL 0.4 MG/ML VIAL IM PRN (11:41)
[2023-08-26] MEDS ORDERED: chlordiazePOXIDE HCL 25 MG CAPSULE ONE (12:04)
[2023-08-26] MEDS: chlordiazePOXIDE HCL 25 MG CAPSULE PO PRN (12:11)
[2023-08-26] MEDS: METHOCARBAMOL 500 MG TABLET PO PRN (13:15)
[2023-08-26] MEDS: hydrOXYzine PAMOATE 25 MG CAPSULE (FP) PO PRN (13:15)
[2023-08-26] MEDS: chlordiazePOXIDE HCL 25 MG CAPSULE PO ONE (14:16)
[2023-08-26] MEDS: chlordiazePOXIDE HCL 25 MG CAPSULE PO SCH (17:02)
[2023-08-26] MEDS: MELATONIN 5 MG TABLETS PO SCH (22:08)
[2023-08-26] MEDS: THIAMINE HCL 100 MG TABLET (FP) PO SCH (22:08)
[2023-08-27 10:34] LABS: HEMATOCRIT 35.7 % (32.4-45.2); HEMOGLOBIN 12.2 GM/dL (10.7-15.3); MCH 30.7 pg (25.7-33.7); MCHC 34.3 g/dl (32.0-36.0); MEAN CELL VOLUME 89.6 fl (80-96); MEAN PLT VOLUME 10.6 fl (7.5-11.1); PLATELET COUNT 108 10^3/uL (134-434); RBC 3.98 M/mm3 (3.60-5.2); RDW 16.9 % (11.6-15.6); WHITE BLOOD COUNT 8.3 K/mm3 (4.0-10.0)
[2023-08-27] MEDS: PRENATAL VITAMINS W/ FOLIC ACID TABLET (FP) PO SCH (10:43)
[2023-08-27] MEDS: LOPERAMIDE HCL 2 MG CAPSULE PO PRN (10:49)
[2023-08-27] MEDS: ACETAMINOPHEN 325 MG TABLET (FP) PO PRN (10:50)
[2023-08-27 11:16] LABS: POTASSIUM 3.8 mmol/L (3.5-5.1)
[2023-08-27 11:24] LABS: CALCIUM 8.5 mg/dL (8.5-10.1)
[2023-08-27 11:25] LABS: ALBUMIN 4.2 g/dl (3.4-5.0); BLOOD UREA NITROGEN 12.2 mg/dL (7-18)
[2023-08-27 11:28] LABS: CREATININE 0.8 mg/dL (0.55-1.3)
[2023-08-27 11:30] LABS: TOT PROT 8.2 g/dl (6.4-8.2)
[2023-08-27] MEDS: ONDANSETRON *ODT* 4 MG TABLET SL PRN (18:05)
[2023-08-27] MEDS: QUEtiapine FUMARATE 100 MG TABLET (FP) PO SCH (22:45)
[2023-08-28] MEDS: chlordiazePOXIDE HCL 25 MG CAPSULE PO SCH (05:02)
[2023-08-28] MEDS: BISMUTH SUBSALICYLATE 262 MG/15 ML BTL PO PRN (12:27)
[2023-08-28] MEDS: DICYCLOMINE HCL 10 MG CAPSULE PO PRN (14:26)
[2023-08-29] MEDS ORDERED: chlordiazePOXIDE HCL 10 MG CAPSULE PO PRN
[2023-08-29] MEDS: chlordiazePOXIDE HCL 10 MG CAPSULE PO SCH (05:50)
[2023-08-29] MEDS: PENICILLIN G BENZATHINE 2,400,000 UNIT/4 ML PFS IM ONE (13:45)
[2023-08-30] MEDS: chlordiazePOXIDE HCL 10 MG CAPSULE PO SCH (05:55)
[2023-08-30 08:07] VITALS: RESP 16
[2023-08-30] MEDS: IBUPROFEN 600 MG TABLET (FP) PO PRN (09:02)
[2023-08-30 10:13] VITALS: BP 117/74; PULSE 72; TEMP 98
[2023-08-31] MEDS ORDERED: chlordiazePOXIDE HCL 10 MG CAPSULE PO ONE (05:00)
== END 2023-08-30 10:16 | disposition home or self-care (01) | DRG 775 ==
LOC: YASAS 10:32 → Y6N 11:49
PROVIDERS: ADMIT Allergy & Immunology; ATTEND Surgery
PROC: HZ2ZZZZ Detoxification Services for Substance Abuse Treatment (ICD-10-PCS; principal; 2023-08-26)
PROC: HZ2ZZZZ Detoxification Services for Substance Abuse Treatment (ICD-10-PCS; 2023-08-26)
DX: F10.230 Alcohol dependence with withdrawal, uncomplicated (principal); F17.210 Nicotine dependence, cigarettes, uncomplicated; F31.9 Bipolar disorder, unspecified; F10.280 Alcohol dependence with alcohol-induced anxiety disorder; F10.282 Alcohol dependence with alcohol-induced sleep disorder; Z62.810 Personal history of physical and sexual abuse in childhood; Z91.410 Personal history of adult physical and sexual abuse; Z63.8 Other specified problems related to primary support group; Z63.0 Problems in relationship with spouse or partner; Z88.2 Allergy status to sulfonamides
CPT/HCPCS: 36415; 80053; 80305; 80307; 81025; 83036; 85027; 86593; 86780; 87635; 87811; Q0162